=== PATIENT | male | born 2000 | race African-American/Black ===

== ENCOUNTER 2022-03-21 11:45 | Emergency (ER) | payer MEDICAID ==
[~2022-03-21] VITALS: Ht 190.5 cm; Wt 111.0 kg
[2022-03-21] MEDS ORDERED: SODIUM CHLORIDE 0.9% 1,000 ML IV ONE (12:15)
[2022-03-21 12:21] VITALS: BP 118/74
== END 2022-03-21 13:11 | disposition home or self-care (01) ==
LOC: ER 11:58
DX: F10.129 Alcohol abuse with intoxication, unspecified (principal); Y90.0 Blood alcohol level of less than 20 mg/100 ml; R56.9 Unspecified convulsions
CPT/HCPCS: 82962; 99283; J7030